=== PATIENT | female | born 1965 | race African-American/Black ===

== ENCOUNTER → 2022-10-31 08:48 | Outpatient (BNVA) | payer BC, SELFPAY | PROVIDERS: PCP Internal Medicine; Visit Provider Internal Medicine ==

== ENCOUNTER 2022-11-22 12:44 | Outpatient (REF) | payer BC, SELFPAY ==
--- NOTE | ~2022-11-22 | CT_ITS ---
EXAMINATION: CT SOFT TISSUE NECK WITHOUT CONTRAST CLINICAL INFORMATION: Multinodular goiter. COMPARISON: None available. TECHNIQUE: Helical imaging was performed in the axial plane with generation of coronal and sagittal reformatted images. This CT examination was performed using dose optimization techniques as appropriate, variously including the following: *Automated exposure control *Adjustment of mA and/or kV according to patient size (this includes techniques or standardized protocols for targeted exams where dose is matched to indication/reason for exam; i.e. extremities or head) *Use of iterative reconstruction technique DLP: 508 mGy-cm FINDINGS: The thyroid gland appears diffusely enlarged with multiple underlying nodules. A few scattered calcifications. The thyroid gland is not extending into the mediastinum. There is no significant mass effect or compression of the trachea. No enlarged upper mediastinal lymph nodes are seen. There is no consolidation or suspicious nodule within the lungs. The parotid and submandibular glands are unremarkable. No pharyngeal or laryngeal lesion is seen. There is a top normal right level 3 lymph node measuring 10 mm and a mildly enlarged left level 4 lymph node measuring 1.1 cm. There is no acute intracranial abnormality. Mild degenerative changes are seen within the spine. Advanced degenerative changes are seen at the right temporomandibular joint. CT/CT soft tissue neck wo IV con IMPRESSION: Diffusely enlarged thyroid gland with multiple underlying nodules. No significant mass effect or compression of the trachea. Top normal right level 3 lymph node and mildly enlarged left level 4 lymph node.
== END 2022-11-22 12:45 | disposition home or self-care (01) ==
LOC: HO.CT 12:44
PROVIDERS: PCP Internal Medicine; Visit Provider Internal Medicine
DX: E04.2 Nontoxic multinodular goiter (principal)
CPT/HCPCS: 70490

== ENCOUNTER 2022-11-27 14:08 | Outpatient (REF) | payer BC, SELFPAY ==
[2022-11-27 15:30] LABS: Alanine Aminotransferase 12 U/L (0-31); Albumin Level 4.1 g/dL (3.5-5.0); Alkaline Phosphatase 70 U/L (39-117); Anion Gap 13 (12-20); Aspartate Amino Transferase 13 U/L (5-31); Bilirubin Total 0.2 mg/dL (0.0-1.0); Blood Urea Nitrogen 12 mg/dL (9-16); Calcium 9.9 mg/dL (8.4-10.2); Carbon Dioxide 26 mmol/L (22-29); Chloride 105 mmol/L (96-108); Estimated Glomerular Filt Rate > 60; Glucose Random 169 mg/dL (60-115); Potassium 3.4 mmol/L (3.3-5.1); Sodium 141 mmol/L (135-145); Total Protein 7.5 g/dL (6.5-8.0)
[2022-11-27 15:48] LABS: Free T4 (Free Thyroxine) 1.03 ng/dL (0.71-1.85); Thyroid Stimulating Hormone 1.06 uIU/mL (0.32-4.0)
[2022-11-27 15:53] LABS: Cortisol Random 7.8 ug/dL
[2022-11-29 03:19] LABS: DHEA Sulfate 57 mcg/dL (5-167); Follicle Stimulating Hormone 35.3 mIU/mL; Lutenizing Hormone 20.3 mIU/mL; Prolactin 5.1 ng/mL; Sex Hormone Binding Globulin 21 nmol/L (14-73)
[2022-12-03 12:48] LABS: Androstenedione 78 ng/dL
[2022-12-03 22:33] LABS: Estradiol Ultra Sensitive 18 pg/mL
[2022-12-04 11:04] LABS: Testosterone, Free 3.7 pg/mL (0.1-6.4); Testosterone, Total 21 ng/dL (2-45)
[2022-12-04 14:43] LABS: IGF-1 (Somatomedin C) 149 ng/mL (50-317); IGF-1 Z Score (Female) 0.3 SD (-2.0 - +2.0)
== END 2022-11-27 14:09 | disposition home or self-care (01) ==
LOC: HO.LAB 14:08
PROVIDERS: Visit Provider Internal Medicine
DX: E04.2 Nontoxic multinodular goiter (principal); L68.0 Hirsutism
CPT/HCPCS: 36415; 80053; 82157; 82533; 82627; 82670; 83001; 83002; 83498; 84146; 84270; 84305; 84402; 84403; 84439; 84443

== ENCOUNTER 2022-11-28 08:11 | Outpatient (REF) | payer BC, SELFPAY ==
[2022-12-03 21:58] LABS: Adrenocorticotropic Hormone 16 pg/mL (6-50)
== END 2022-11-28 08:12 | disposition home or self-care (01) ==
LOC: HO.LAB 08:11
PROVIDERS: Visit Provider Internal Medicine
DX: L68.0 Hirsutism (principal)
CPT/HCPCS: 36415; 82024

== ENCOUNTER 2023-02-21 08:42 | Outpatient (REF) | payer BC, SELFPAY ==
--- NOTE | ~2023-02-21 | US_ITS ---
Ultrasound-guided biopsy of the nodule in the mid to lower pole of the left lobe of the thyroid gland INDICATIONS: 1.8 x 2.1 x 1.4 cm nodule in the inferior aspect of left lobe of the thyroid gland. . After informed and written consent was obtained an official timeout was performed immediately prior to the procedure. PROCEDURE: Initial ultrasound surveillance of the left lobe of the thyroid gland demonstrates a 1.8 x 2.1 x 1.4 cm nodule in the mid to inferior aspect of left lobe thyroid gland. There is a second nodule just cephalad to this area measuring 1.3 x 1.5 x 0.7 cm. The skin was prepped and draped in usual fashion. 1% Xylocaine was used for local anesthetic. Under ultrasound guidance 6 needle aspirates were obtained from the larger nodule in the mid inferior aspect of the left lobe of the thyroid gland. The specimens were analyzed by the pathology department. US/US biopsy thyroid IMPRESSION: Ultrasound-guided needle aspiration of the nodule in the mid to inferior aspect of the left lobe of the Thyroid gland measuring 1.8 x 2.1 x 1.4 cm Second nodule just cephalad to this area measuring 1.3 x 1.5 x 0.7 cm. This nodule was not biopsied at this time.
[2023-02-21] MEDS: Lidocaine HCl 1 % MPF 5 ML VIAL SUBCUT (10:21)
== END 2023-02-21 08:43 | disposition home or self-care (01) ==
LOC: HO.US 08:42
PROVIDERS: Visit Provider Internal Medicine
DX: E04.2 Nontoxic multinodular goiter (principal)
CPT/HCPCS: 10005; 88172; 88173; 88177

== ENCOUNTER → 2023-02-21 08:44 | Outpatient (BNV) | payer BC, SELFPAY | PROVIDERS: Visit Provider Radiology Vascular & Interventional Radiology | DX: E04.2 Nontoxic multinodular goiter (principal) | CPT/HCPCS: 10005; 10006 ==